=== PATIENT | female | born 2000 ===

== ENCOUNTER 2023-03-09 17:12 | Inpatient (IN) | payer MEDICAID ==
[2023-03-09] MEDS ORDERED: Sodium Chloride 0.9% 2.5 ML Syringe FLUSH PRN (19:10)
[2023-03-09] MEDS ORDERED: Carboprost Tromethamine 250 MCG/1 mL Vial IM PRN (19:10)
[2023-03-09] MEDS ORDERED: Misoprostol 200 MCG Tab PO PRN (19:10)
[2023-03-09] MEDS ORDERED: Lidocaine 1% 50 ML MDV INJECT PRN (19:10)
[2023-03-09] MEDS ORDERED: Sodium Chloride 0.9% 10 ML Syringe FLUSH PRN (19:10)
[2023-03-09] MEDS ORDERED: Terbutaline 1 MG/ML SDV SUBCUT PRN (19:10)
[2023-03-09] MEDS ORDERED: Butorphanol 1 MG/ML SDV IVPUSH PRN (19:10)
[2023-03-09] MEDS ORDERED: Methylergonovine 0.2 MG/1 ML Amp IM PRN (19:10)
[2023-03-09] MEDS ORDERED: Water For Irrigation,Sterile 1,000 ML Container IRR PRN (19:10)
[2023-03-09] MEDS ORDERED: Tranexamic Acid 1,000 MG in Sodium Chloride 0.9% 100 ML IV PRN (19:10)
[2023-03-09] MEDS ORDERED: Sodium Chloride 0.9% 20 ML SDV IV PRN (19:10)
[2023-03-09] MEDS ORDERED: Misoprostol 25 MCG (1/4 of 100 MCG) Tab VAG PRN ×2 (19:10)
[2023-03-09] MEDS ORDERED: Oxytocin/0.9 % Sodium Chloride 30 UNIT/500 ML BAG IV SCH ×2 (19:15)
[2023-03-09 19:27] LABS: HEMATOCRIT 34.7 % (36.0-46.0); HEMOGLOBIN 11.9 g/dL (12.0-16.0); MEAN CORPUSCULAR HEMOGLOBIN 30.8 pg (27.0-32.0); MEAN CORPUSCULAR HGB CONC 34.3 g/dL (31.0-37.0); MEAN CORPUSCULAR VOLUME 89.9 fL (80.0-98.0); PLATELET COUNT,PLT 332 K/uL (150-400); RED BLOOD CELL COUNT 3.86 M/uL (4.30-5.90); WHITE BLOOD CELL COUNT,WBC 10.21 K/uL (4.0-11.0)
[2023-03-09] MEDS ORDERED: ePHEDrine 50 MG/ML SDV IVPUSH PRN ×2 (21:28)
[2023-03-09] MEDS ORDERED: Ropivacaine HCl/PF 400 MG in Premix Bag 1 BAG EPIDUR SCH (21:30)
[2023-03-10] MEDS: Lactated Ringers 1,000 ML IV SCH ×3 (01:45→07:14)
[2023-03-10] MEDS ORDERED: Bupivacaine 0.5% 10 ML SDV ONE (02:11)
[2023-03-10] MEDS ORDERED: Ropivacaine/PF 400 MG/200 ML PCA ONE (02:11)
[2023-03-10] MEDS: Phenylephrine HCl 0.5 MG/5 ML AMP IVPUSH PRN ×2 (05:25→08:03)
[2023-03-10] MEDS ORDERED: oxyCODONE 5 MG Tab PO PRN (12:24)
[2023-03-10] MEDS ORDERED: Lanolin 100% Cream 7 GM Tube TOP PRN (12:24)
[2023-03-10] MEDS ORDERED: Bisacodyl 10 MG Supp RECTAL PRN (12:24)
[2023-03-10] MEDS ORDERED: Ibuprofen 400 MG Tab PO PRN (12:24)
[2023-03-10] MEDS ORDERED: Acetaminophen 500 MG Tab PO PRN (12:24)
[2023-03-10] MEDS ORDERED: Aluminum Hydroxide/Magnesium Hydroxide/Simethicone XS Susp 30 ML Cup PO PRN (12:24)
[2023-03-10] MEDS ORDERED: Docusate Sodium 100 MG Cap PO PRN (12:24)
[2023-03-10] MEDS ORDERED: Benzocaine/Menthol 20%-0.5% Spray 78 GM Cannister TOP PRN (12:24)
[2023-03-10] MEDS ORDERED: Witch Hazel Medicated Pads 40/Jar TOP PRN (12:24)
[2023-03-10 13:04] LABS: PH,UMBILICAL ARTERIAL 7.125 (7.18-7.38); PH,UMBILICAL VENOUS 7.176 (7.25-7.45)
[2023-03-10] MEDS: Ibuprofen 800 MG Tab PO PRN (16:19)
[2023-03-11] MEDS: Ibuprofen 800 MG Tab PO PRN ×2 (04:34→17:01)
[2023-03-11] MEDS: Acetaminophen 500 MG Tab PO PRN (04:35)
[2023-03-11 05:58] LABS: HEMATOCRIT 36.7 % (36.0-46.0); HEMOGLOBIN 12.5 g/dL (12.0-16.0)
[2023-03-12] MEDS: Ibuprofen 800 MG Tab PO PRN (03:46)
[2023-03-12] MEDS: Acetaminophen 500 MG Tab PO PRN (03:47)
== END 2023-03-12 11:06 | disposition home or self-care (01) | DRG 807 ==
LOC: MW.OB 17:12 → MW.OBCHECK 17:12 → MW.OB 19:10 → MW.OBCHECK 19:10 → OBSVTOIN 03-10 12:13 → MW.OB 03-10 19:10
PROVIDERS: ADMIT Obstetrics & Gynecology; ATTEND Obstetrics & Gynecology
PROC: 10E0XZZ Delivery of Products of Conception, External Approach (ICD-10-PCS; principal; 2023-03-10)
PROC: 3E0R3BZ Introduction of Anesthetic Agent into Spinal Canal, Percutaneous Approach (ICD-10-PCS; 2023-03-10)
PROC: 00HU33Z Insertion of Infusion Device into Spinal Canal, Percutaneous Approach (ICD-10-PCS; 2023-03-10)
PROC: 3E0P7VZ Introduction of Hormone into Female Reproductive, Via Natural or Artificial Opening (ICD-10-PCS; 2023-03-10)
PROC: 3E033VJ Introduction of Other Hormone into Peripheral Vein, Percutaneous Approach (ICD-10-PCS; 2023-03-10)
DX: O42.02 Full-term premature rupture of membranes, onset of labor within 24 hours of rupture (principal); Z37.0 Single live birth; O48.0 Post-term pregnancy; O99.02 Anemia complicating childbirth; D64.9 Anemia, unspecified; O76 Abnormality in fetal heart rate and rhythm complicating labor and delivery; Z3A.40 40 weeks gestation of pregnancy
CPT/HCPCS: 36415; 51702; 59025; 82803; 84112; 85014; 85018; 85027; 86592; 86850; 86900; 86901; A9270-GY; J0595; J2370; J2590; J2795; J3490; J7120

== ENCOUNTER 2023-07-30 19:57 | Emergency (ER) | payer MEDICAID ==
[2023-07-30] MEDS ORDERED: Lidocaine 1% 5 ML VIAL INJECT ONE (20:16)
== END 2023-07-30 21:00 | disposition home or self-care (01) ==
LOC: MW.ED 19:57
DX: S61.215A Laceration without foreign body of left ring finger without damage to nail, initial encounter (principal); W26.0XXA Contact with knife, initial encounter
CPT/HCPCS: 12001; 99282; 99283; J3490